=== PATIENT | male | born 1975 | race Caucasian/White ===

== ENCOUNTER 2022-01-01 07:09 | Day surgery (SDC) | payer OTHER ==
[~2022-01-01] VITALS: Ht 177.8 cm; Wt 126.5 kg
[~2022-01-01 07:09] MED LIST: ALLEGRA ALLERG180 MG PO; BACTRIM DS TAB1 EACH PO; CYCLOBENZAPRINE5 MG PO; LOTENSIN20 MG PO; NEURONTIN300 MG PO; NEXIUM5 MG PO; NORVASC5 MG PO; OMEPRAZOLE20 MG PO
--- NOTE | 2022-01-01 08:59 | NUR ---
01/01/22 0859 Amy Gar 0852-PT TO PACU IN LL POSITION. DROWSY BUT KEEPS EYES OPEN AND ASKS QUESTIONS ABOUT PROCEDURE. BREATHING EASY AND UNLABORED. SPO2 >95% ON 3 L O2 VIA NC. PT ENCOURAGED TO PASS GAS. 0858-PT REMAINS AWAKE. DENIES PAIN AND NAUSEA. PT PASSING GAS. BREATHING EASY AND UNLABORED. SPO2 >95% ON 3 L O2 VIA NC. O2 TITRATED DOWN TO ROOM AIR.
--- NOTE | 2022-01-01 09:32 | OR ---
[facility] [address] [place], [place] [address] Signed DATE OF OPERATION: 01/01/2022 SURGEON: Daina Antoine MD PREOPERATIVE DIAGNOSIS: Screening. POSTOPERATIVE DIAGNOSIS: 4 mm periappendiceal polyp. PROCEDURE: Colonoscopy with hot biopsy. ESTIMATED BLOOD LOSS: None. INDICATIONS: Daina is a 46-year-old gentleman, who presents for his initial screening colonoscopy. He has no lower GI complaints. There is no family history of colon cancer or polyps. I gave him a pamphlet on colonoscopy and he understands the nature of that test. There is risk including, but not limited to gas bloating, crampy abdominal pain, bleeding, perforation requiring surgery, and missed diagnosis. He also understands the need for IV conscious sedation. He had expressed understanding and wished to proceed. PROCEDURE NOTE: Daina was taken into our endoscopy suite and placed in the left lateral decubitus position. He was given IV sedation with 7 mg of Versed and 125 mcg of fentanyl. Overall, he did well, but he does metabolize drug quickly. He said he has no recall of the procedure. A digital rectal exam was performed and this was unremarkable. He has good sphincter tone. The adult colonoscope was introduced and advanced all the way into the cecum under direct visualization of the camera. It did take some extra sedation as we went. Overall, his prep was good. He might consider a little more prep in the future. We took pictures throughout for photodocumentation. He had a 4 mm polyp next to the appendiceal opening. It was easily removed with the help of hot biopsy forceps. The rest of the colon was unremarkable. His rectum was unremarkable. Upon retroflexion of the scope, there was no additional pathology noted above the anal canal. After this, the gas was suctioned out and the colonoscope removed. Daina tolerated the procedure quite well. RECOMMENDATIONS: Electronically Signed By: DAINA ANTOINE MD 01/01/22 0932 PATIENT NAME: DAINA NAVARRO OPERATIVE REPORT DATE OF : 75 REPORT #: [id number] PHYSICIAN: DAINA ANTOINE MD PCP: ZIGGY ALFARO MD REPORT IS CONFIDENTIAL AND NOT TO BE RELEASED WITHOUT AUTHORIZATION [address] [address] Signed I will see Daina back in my office in 7 to 14 days to review his results. Daina Antoine MD ALB/MODL /[id number] cc: MD Ziggy Ramirez MD Copies: DAINA ANTOINE MD, RUSSELL BARR MD ~ Electronically Signed By: DAINA ANTOINE MD 01/01/22 0932 PATIENT NAME: DAINA NAVARRO OPERATIVE REPORT DATE OF : 75 REPORT #: [id number] PHYSICIAN: DAINA ANTOINE MD PCP: ZIGGY ALFARO MD REPORT IS CONFIDENTIAL AND NOT TO BE RELEASED WITHOUT AUTHORIZATION
--- NOTE | 2022-01-02 14:47 | PATH ---
[facility] [address] [place], [place] [address] Signed SPECIMEN(S): A CECAL POLYP SPECIMEN SOURCE: A. CECAL POLYP CLINICAL HISTORY: Screening colonoscopy and diarrhea. Colonoscopy. FINAL PATHOLOGIC DIAGNOSIS: Cecal polyp: - Serrated polyp/adenoma (one fragment). JVR:[facility]:C2NR MICROSCOPIC EXAMINATION: Histologic sections of all submitted blocks are examined by light microscopy. These findings, together with the gross examination, support the pathologic diagnosis. GROSS DESCRIPTION: The specimen, labeled "AA, cecal polyp," and designated on the requisition "cecum at periappendiceal orifice," is received in formalin and consists of one hernandez soft tissue fragment that measures 0.2 cm in greatest dimension. The specimen is entirely submitted in cassette (A1). AT (under the direct supervision of a pathologist) The Gross Description was prepared using a voice recognition system. The report was reviewed for accuracy; however, sound-alike word errors, addition and/or deletions may occur. If there is any question about this report, please contact Client Services. PERFORMING LABORATORY: The technical component was performed by [facility], [address] [place] [id number] (CLIA# [id number]). Professional interpretation was performed by [facility] - [facility], [address] [place] [id number] (CLIA#: [id number]). Diagnostician: Yariel Alves MD Pathologist Electronically Signed 01/02/2022 Copies: PATIENT NAME: DAINA NAVARRO PATHOLOGY DATE OF : 75 REPORT #: [id number] PHYSICIAN: ESTELLA PATHOLOGY PCP: ZIGGY ALFARO MD REPORT IS CONFIDENTIAL AND NOT TO BE RELEASED WITHOUT AUTHORIZATION [address] [place], [place] [address] Signed ~ PATIENT NAME: DAINA NAVARRO PATHOLOGY DATE OF : 75 REPORT #: [id number] PHYSICIAN: ESTELLA PATHOLOGY PCP: ZIGGY ALFARO MD REPORT IS CONFIDENTIAL AND NOT TO BE RELEASED WITHOUT AUTHORIZATION
== END 2022-01-01 09:42 | disposition home or self-care (01) ==
LOC: DS 07:09 → OPS 07:09 → DS 08:15 → OPS 08:15
PROVIDERS: ATTEND Colon & Rectal Surgery
PROC: 0DBH8ZX Excision of Cecum, Via Natural or Artificial Opening Endoscopic, Diagnostic (ICD-10-PCS; principal; 2022-01-01 08:15)
DX: Z12.11 Encounter for screening for malignant neoplasm of colon (principal); D12.0 Benign neoplasm of cecum; I10 Essential (primary) hypertension; E29.1 Testicular hypofunction; E66.9 Obesity, unspecified; Z68.41 Body mass index [BMI] 40.0-44.9, adult; K42.0 Umbilical hernia with obstruction, without gangrene
CPT/HCPCS: 99153; G0500; J2250; J3010; J7121

== ENCOUNTER 2024-04-25 07:50 | Day surgery (SDC) | payer OTHER ==
[2024-04-17 11:24] VITALS: BP 166/90
[~2024-04-25] VITALS: Ht 177.8 cm; Wt 131.8 kg
[~2024-04-25 07:50] MED LIST changes: +ADVIL200 M1 PO; +CEFAZOLIN SODIUM 1 GM/10 ML SYR IV SCH; +DORZOLAMIDE-TIM10 ML OP; +IBLOOD GLUCOSE TEST STRIP 1 EA TEST VI PRN; +LACTATED RINGER'S 1,000 ML IV SCH; +LIDOCAINE 1% W/ EPI 1:100,000 20 ML MDV ONE; +LIDOCAINE HCL 1% 5 ML SDV INJ ONE; +METOPROLOL TART25 MG PO; +NEXIUM 24HR20 M2 PO; -NEXIUM5 MG PO; +OXYMETAZOLINE HCL 30 ML BTL NAS SCH
[2024-04-25 08:29] LABS: BASOPHILS 0.5 % (0-2); EOSINOPHILS 2.3 % (0-6); HEMATOCRIT 42.9 % (35.0-50.0); HEMOGLOBIN 14.7 g/dL (12.0-18.0); LYMPHOCYTES 22.5 % (24-44); MCHC 34.3 g/dl (30-36); MCV 90.4 fl (81-99); MONOCYTES 6.5 % (0-12); NEUTROPHILS 68.2 % (39-80); PLATELET COUNT 324 K/uL (140-440); RBC 4.75 M/ul (4.3-5.7); RDW 12.9 (10.5-15.0)
[2024-04-25 08:33] VITALS: BP 154/89
[2024-04-25] MEDS ORDERED: OXYMETAZOLINE HCL 30 ML BTL NAS SCH (08:45)
[2024-04-25 08:50] LABS: ALBUMIN 3.7 g/dL (3.4-5.0); ALBUMIN/GLOBULIN RATIO 1.12 (1.1-2.4); ANION GAP 13.1 (7-21); BILIRUBIN, TOTAL 0.2 ng/dL (0.2-1.0); BUN/CREATININE RATIO 16.47 (6.0-28.6); CALCIUM 8.8 mg/dL (8.5-10.1); CREATININE, SERUM 0.85 mg/dL (0.70-1.30); POTASSIUM 4.1 mmol/L (3.5-5.1)
[2024-04-25] MEDS ORDERED: DEXAMETHASONE SOD PHOS 4 MG/ML VIAL ONE (08:52)
[2024-04-25] MEDS ORDERED: fentaNYL citrate 100 MCG/2 ML VIAL ONE (08:52)
[2024-04-25] MEDS ORDERED: ondansetron HCL 4 MG/2 ML VIAL ONE (08:52)
[2024-04-25] MEDS ORDERED: MIDAZOLAM HCL 2 MG/2 ML VIAL ONE (08:52)
[2024-04-25] MEDS ORDERED: LIDOCAINE HCL 2% 5 ML SDV ONE (08:52)
[2024-04-25] MEDS ORDERED: propofoL 200 MG/20 ML VIAL ONE (08:52)
[2024-04-25] MEDS ORDERED: ACETAMINOPHEN 1,000 MG/100 ML VIAL ONE (08:52)
[2024-04-25] MEDS ORDERED: HYDROmorphone HCL 1 MG/ML SYR IV PRN (09:45)
[2024-04-25] MEDS ORDERED: droPERidol 5 MG/2 ML VIAL IV PRN (09:45)
[2024-04-25] MEDS ORDERED: IBLOOD GLUCOSE TEST STRIP 1 EA TEST VI PRN (09:45)
[2024-04-25] MEDS ORDERED: PROCHLORPERAZINE EDISYLATE 10 MG/2 ML VIAL IV PRN (09:45)
[2024-04-25] MEDS ORDERED: ondansetron HCL 4 MG/2 ML VIAL IV PRN (09:45)
[2024-04-25] MEDS ORDERED: fentaNYL citrate 50 MCG/ML SDV IV PRN (09:45)
[2024-04-25] MEDS ORDERED: NALOXONE HCL 0.4 MG SYR IV PRN (09:45)
[2024-04-25 10:55] VITALS: BP 130/73
[2024-04-25] MEDS ORDERED: HYDROCODONE/ACETA 5/325 TAB PO PRN (11:00)
--- NOTE | 2024-04-25 11:02 | NUR ---
04/25/24 1102 Pau Thorpe 1015 PT ARRIVED IN PACU SLEEPY. BUTTON TIED TO END OF NOSE INTACT. 1025 DRIP PAD PLACED UNDER NOSE CDI. 1035 C/O SINUS PAIN 5/10. FENTANYL 50MCG GIVEN IVP. 1040 SIPPING ON WATER. 1050 PAIN DOWN TO 1/10. TO DS. REPORT GIVEN TO RN. AT BEDSIDE.
--- NOTE | 2024-04-25 11:32 | OR ---
[facility] [address] [place], [place] [address] Signed DATE OF OPERATION: 04/25/2024 SURGEON: Izaiah Bone MD PREOPERATIVE DIAGNOSIS: Nasal obstruction due to septal deformity and inferior turbinate hypertrophy. 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 PROCEDURES: 1. Septoplasty. 2. Cautery, bilateral inferior turbinates, submucosal. ANESTHESIA: General, LMA; [employer], Yung PREOP HISTORY: Mr. Carlos is a 48-year-old man, difficulty with tolerating CPAP due to nasal obstruction, this has been found to be due to septal deformity and inferior turbinate hypertrophy. This is unresponsive to appropriate medications and he is taken to the operating room for the above-mentioned procedures. OPERATIVE PROCEDURE AND FINDINGS: After informed consent, the patient was taken to the operating room, placed in supine position, where general LMA anesthesia was induced. The patient and procedure were verified. The patient received preoperative intranasal oxymetazoline and intravenous Ancef. Headlight speculum exam of the nasal cavity showed septal deformity on the left. A large spur inferiorly extending all the way back posteriorly. The turbinates were decongested. A 1% lidocaine with epi was injected in the septal mucosa, left side overlying the spur and deformity. All deviated septal bone and cartilage were then excised with the Mary. The septum was medialized with the nasal speculum. Airway was improved in this manner, minimal bleeding. The inferior turbinates were then cauterized starting on the right side with long handle needle point cautery. Multiple transmucosal passes on the inferior turbinate on the medial inferior surface starting anteriorly extending all the way back posteriorly. Same procedure on the left inferior turbinate. The airway was improved in this manner. Minimal bleeding. Packing was then placed, trimmed Merocel, one piece each side coated with Neosporin, tied anteriorly over a pad. The pharynx was suctioned clear of blood Electronically Signed By: IZAIAH BONE MD 04/25/24 1132 PATIENT NAME: DAINA CARLOS OPERATIVE REPORT DATE OF : 75 REPORT #: [id number] PHYSICIAN: IZAIAH BONE MD PCP: ZIGGY ALFARO MD REPORT IS CONFIDENTIAL AND NOT TO BE RELEASED WITHOUT AUTHORIZATION [address] [place], [place] [address] Signed secretions. The patient was then awakened, extubated, and transported to the recovery room in good condition. No complications. BLOOD LOSS: Minimal. SPECIMEN: No specimens. DRAINS: No drains. PACKING: One piece of Merocel in each nostril. Izaiah Bone MD GC/MODL /[id number] Copies: ~ Electronically Signed By: IZAIAH BONE MD 04/25/24 1132 PATIENT NAME: DAINA CARLOS OPERATIVE REPORT DATE OF : 75 REPORT #: [id number] PHYSICIAN: IZAIAH BONE MD PCP: ZIGGY ALFARO MD REPORT IS CONFIDENTIAL AND NOT TO BE RELEASED WITHOUT AUTHORIZATION
[2024-04-25] MEDS ORDERED: HYDROCODON-ACE1 EA10 PO (11:42)
[2024-04-25] MEDS ORDERED: CEPHALEXIN500 M1 PO (11:44)
[2024-04-25 11:57] VITALS: BP 149/88
--- NOTE | 2024-04-25 13:09 | EKG ---
[facility] [address] [facility] [place] [address] Signed Normal sinus rhythm Nonspecific T wave abnormality Abnormal ECG No previous ECGs available Confirmed by Philip Morris MD ([id number]) on 04/25/2024 1:09:45 PM Electronically Signed By: PHILIP MORRIS DO 04/25/24 1309 PATIENT NAME: DAINA NAVARRO Electrocardiogram DATE OF : 75 PHYSICIAN: PHILIP MORRIS DO REPORT #: [id number] REPORT IS CONFIDENTIAL AND NOT TO BE RELEASED WITHOUT AUTHORIZATION
--- NOTE | 2024-04-25 14:05 | NUR ---
1100: PATIENT BACK IN DAY SURGERY ROOM FROM PACU. MOUSTACHE DRESSING IN PLACE IS CLEAN, DRY AND INTACT. VS CHECKED. RATES PAIN 4-5/10. IV SITE WNL. SCDs ON. AT BEDSIDE. CALL LIGHT WITHIN REACH. GIVEN CHOCOLATE PUDDING AND CRACKERS. TOLERATING ICE WATER.
--- NOTE | 2024-04-25 14:13 | NUR ---
1105: PATIENT MEDICATED FOR PAIN WITH 1 TAB OF NORCO. LUNCH ORDERED FOR PATIENT. 1200: DISCHARGE INSTRUCTIONS GIVEN TO PATIENT AND . VS CHECKED. PATIENT EATING LUNCH. AT BEDSIDE. CALL LIGHT WITHIN REACH. 1205: STAND BY ASSIST WHILE PATIENT GOT OOB. GAIT STEADY AROUND ROOM. PATIENT GETTING DRESSED. IN ROOM WITH PATIENT. 1215: IV DC'D WNL. TIP INTACT. DRESSING APPLIED. PATIENT DISCHARGED TO HOME WITH VIA WHEELCHAIR.
[2024-04-25] MEDS ORDERED: SEVOFLURANE 250 ML BTL INH ONE (14:43)
== END 2024-04-25 12:15 | disposition home or self-care (01) ==
LOC: OPS 07:50 → DS 07:50 → OPS 10:30
PROVIDERS: Nurse Anesthetist, Certified Registered; ATTEND Otolaryngology
PROC: 09BM0ZZ Excision of Nasal Septum, Open Approach (ICD-10-PCS; principal; 2024-04-25 10:30)
DX: J34.2 Deviated nasal septum (principal); J34.3 Hypertrophy of nasal turbinates; J34.89 Other specified disorders of nose and nasal sinuses; G47.33 Obstructive sleep apnea (adult) (pediatric); Z99.89 Dependence on other enabling machines and devices
CPT/HCPCS: 00160; 36415; 80053; 85025; 93005; 93010; J0131; J0690; J1100; J2003; J2250; J2405; J2704; J3010; J7121